=== PATIENT | female | born 1990 | race Two or more races ===

== ENCOUNTER 2024-05-12 17:02 | Emergency (ER) | payer OTHER ==
[~2024-05-12] VITALS: Ht 165.1 cm; Wt 59.0 kg
[2024-05-12] MEDS ORDERED: DEXAMETHASONE SODIUM PHOSPHATE 4 MG/ML VIAL IM STA (18:47)
[2024-05-12] MEDS ORDERED: ORPHENADRINE CITRATE 30 MG/ML AMPUL IM STA (18:48)
[2024-05-12 19:02] LABS: HEMATOCRIT 37.9 % (36.0-45.00); HEMOGLOBIN 12.9 g/dL (12.0-15.00); MEAN CELL VOLUME 87.8 fL (80.00-100.00); MEAN CORPUSCULAR HGB CONC 34.2 g/dl (32.0-36.0); PLATELET COUNT 276 K/uL (150-450); RED BLOOD COUNT 4.31 M/uL (4.00-6.00); RED CELL DISTRIBUTION WIDTH 13.3 % (11.5-14.5)
[2024-05-12] MEDS ORDERED: ROBITUSSIN COU237 M1 PO (20:37)
[2024-05-12] MEDS ORDERED: MILLIPRED5 MG PO (20:42)
== END 2024-05-12 20:45 | disposition home or self-care (01) ==
LOC: ER 17:04
DX: U07.1 COVID-19 (principal); Z88.2 Allergy status to sulfonamides; Z88.0 Allergy status to penicillin